=== PATIENT | female | born 1980 | race Caucasian/White ===

== ENCOUNTER → 2022-11-09 | Outpatient (CLI) | payer OTHER | END | disposition home or self-care (01) | LOC: MSR 11:49 | PROVIDERS: ATTEND Chiropractor | DX: M19.071 Primary osteoarthritis, right ankle and foot (principal); M19.072 Primary osteoarthritis, left ankle and foot; M17.12 Unilateral primary osteoarthritis, left knee; M77.31 Calcaneal spur, right foot; M77.32 Calcaneal spur, left foot; M79.89 Other specified soft tissue disorders; M50.30 Other cervical disc degeneration, unspecified cervical region; M47.812 Spondylosis without myelopathy or radiculopathy, cervical region; M51.36 Other intervertebral disc degeneration, lumbar region; M47.816 Spondylosis without myelopathy or radiculopathy, lumbar region; B00.9 Herpesviral infection, unspecified | CPT/HCPCS: 72040; 72100; 86695; 86696 ==